=== PATIENT | female | born 1940 | race Caucasian/White ===

== ENCOUNTER 2018-03-22 13:10 | Outpatient (CLI) | payer MEDICARE | END 2018-03-22 13:11 | disposition home or self-care (01) | LOC: BICMAMMO 13:10 | PROVIDERS: ATTEND Internal Medicine | DX: Z12.31 Encounter for screening mammogram for malignant neoplasm of breast (principal); M81.0 Age-related osteoporosis without current pathological fracture; R92.1 Mammographic calcification found on diagnostic imaging of breast; Z80.3 Family history of malignant neoplasm of breast | CPT/HCPCS: 77063; 77067; 77080 ==

== ENCOUNTER 2018-07-04 08:58 | Emergency (ER) | payer MEDICARE, OTHER ==
[2018-07-04] MEDS ORDERED: Metoclopramide HCl 10 MG/2 ML VIAL ONE (10:10)
[2018-07-04] MEDS ORDERED: diphenhydrAMINE 50 MG/ML VIAL ONE (10:10)
--- NOTE | 2018-07-04 11:22 | CT ---
CT HEAD NONCONTRAST: Indication: Headache. Comparison: 06-15-17 FINDINGS: Stable area of encephalomalacia of the right parietal lobe is present. This is superimposed upon mode rate chronic microvascular ischemic disease. Ventricular system is mildly prominent, stable. No acute intracranial hemorrhage or mass effect. IMPRESSION: Focal right parietal encephalomalacia superimposed upon moderate microvascular ischemic disease. No a cute intracranial hemorrhage or mass effect. POS: [facility]
[2018-07-04] MEDS ORDERED: Ketorolac Tromethamine 30 MG/ML VIAL ONE (12:23)
== END 2018-07-04 12:32 | disposition home or self-care (01) ==
LOC: ERS 08:58
DX: R51 Headache (principal); F41.9 Anxiety disorder, unspecified; E03.9 Hypothyroidism, unspecified; M81.0 Age-related osteoporosis without current pathological fracture; Z79.899 Other long term (current) drug therapy
CPT/HCPCS: 70450; 96361; 96374; 96375; J1200; J1885; J2765

== ENCOUNTER 2018-07-19 11:51 | Inpatient (IN) | payer MEDICARE, OTHER ==
[2018-07-19] MEDS ORDERED: HYDROcodone/Acetaminophen 5/325 mg Tablet ONE (12:32)
[2018-07-19] MEDS ORDERED: Ondansetron ODT 8 MG TAB ONE (12:32)
[2018-07-19] MEDS ORDERED: Lidocaine 1% (PF) 30 ML VIAL ONE (12:38)
--- NOTE | 2018-07-19 12:47 | RAD ---
LEFT ANKLE THREE VIEWS: History: Injury to ankle. FINDINGS: No significant soft tissue swelling. No evidence of fracture. IMPRESSION: No acute osseous abnormality identified. POS: [facility]
--- NOTE | 2018-07-19 12:48 | RAD ---
RIGHT WRIST THREE VIEWS: History: Injury to wrist. FINDINGS: There is soft tissue swelling and evidence of soft tissue disruption ventrally at the wrist. There is diffuse radiopacities within the soft tissues consistent with foreign body. There are degenerative c hanges at the carpals. No acute fracture identified. IMPRESSION: Soft tissue injury with soft tissue foreign material within the soft tissues ventrally at the wrist. No acute fracture identified. POS: [facility]
[2018-07-19] MEDS ORDERED: Ondansetron PF 4 MG/2 ML Vial IV PRN (15:17)
[2018-07-19] MEDS ORDERED: Acetaminophen 325 MG TAB PO PRN (15:17)
[2018-07-19] MEDS ORDERED: Morphine 4 MG/ML VIAL SLOW IVP PRN ×2 (15:17)
[2018-07-19] MEDS ORDERED: traMADol HCl 50 MG TAB PO PRN ×2 (15:17)
[2018-07-19] MEDS ORDERED: Fentanyl 100 MCG/2 ML VIAL SLOW IVP PRN (15:17)
[2018-07-19] MEDS ORDERED: Communication Order-Pharmacy FS SCH (15:30)
[2018-07-19] MEDS ORDERED: TETANUS AND DIPHTHERIA TOX/PF 0.5 ML DISP.SYRIN IM SCH (15:30)
[2018-07-19 15:45] LABS: #Basophils 0.1 thou/uL (0.0-0.2); #Lymphocytes 1.2 thou/uL (1.20-3.40); #Monocytes 0.5 thou/uL (0.11-0.59); #Neutrophils 7.8 thou/uL (1.40-6.50); %Basophils 0.6 % (0.0-1.0); %Eosinophils 0.2 % (0.0-10.0); %Lymphocytes 12.1 % (21.0-51.0); %Neutrophils 81.9 % (42.0-75.0); Mean Corpuscular HGB CONC 33.8 g/dL (32.0-36.0); Mean Corpuscular Hemoglobin 32.8 pg (27.0-31.0); Platelet Count 236 thou/uL (130-400); RBC Distribution Width 10.9 % (11.5-14.5); Red Blood Cell (RBC) Count 3.64 mill/uL (4.20-5.40); White Blood Cell (WBC) Count 9.5 thou/uL (4.8-10.8)
[2018-07-19 16:20] LABS: ALT (SGPT) 18 U/L (8-55); AST (SGOT) 34 U/L (5-34); Albumin 3.8 g/dL (3.4-4.8); Alkaline Phosphatase 71 U/L (40-150); Anion Gap 13 mmol/L (10-20); BUN (Urea Nitrogen) 13 mg/dL (9.8-20.1); Bilirubin, Total 0.2 mg/dL (0.2-1.2); Calc. Creatinine Clearance 0 mL/min (70-130); Calcium 9.5 mg/dL (7.8-10.44); Carbon Dioxide 25 mmol/L (23-31); Chloride 106 mmol/L (98-107); Estimated GFR-MDRD 74; Globulin 2.9 g/dL (2.4-3.5); Glucose 98 mg/dL (83-110); Potassium 3.6 mmol/L (3.5-5.1); Protein, Total 6.7 g/dL (6.0-8.3); Sodium 140 mmol/L (136-145)
[2018-07-19] MEDS: Ketorolac Tromethamine 30 MG/ML VIAL IVP SCH ×2 (18:39→23:32)
[2018-07-19] MEDS: CEFAZOLIN 2 GM/50 ML BAG IVPB SCH ×2 (18:39→23:32)
[2018-07-19 19:22] VITALS: BMI 19.7
[2018-07-19] MEDS: Aspirin 81 mg Enteric Coated Tablet PO SCH (19:56)
[2018-07-19] MEDS: Sodium Chloride 0.9% 100 ML IV SCH ×3 (19:57→21:14)
--- NOTE | 2018-07-19 20:47 | CON ---
This is a consult dictated in HNP Format::: DATE OF CONSULTATION: HISTORY OF PRESENT ILLNESS: We are asked by the ER to see the patient. The patient was out on the property and has a new puppy. Unfortunately, the puppy was unleashed and jumped out of the car. Ms. Dye went with it and incurred a large jagged wrist laceration. She has good motion in her hand. No numbness or tingling. ER have scrubbed it out, has a lot of dirt and rocks, but it is quite hard to approximate the edges. I spoke with Dr. Johnson let him know the case, would like to put her in the hospital and might get her couple doses of antibiotics and clean and approximate the wound tomorrow. I have discussed this with patient, she is amenable to go forth with that. PAST MEDICAL HISTORY: Positive for Synthroid. PAST SURGICAL HISTORY: She has had a right fractured hip and has a saul in her hip. 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 No alcohol , nicotine, or illicit drug use whatsoever. FAMILY HISTORY: Has been healthy and is noncontributory. CURRENT MEDICATIONS: Synthroid. ALLERGIES: SENSITIVITY TO CODEINE. REVIEW OF SYSTEMS: Other than her thyroid, she is very healthy individual. She does take some supplemental medications and vitamins, but otherwise has no other health issues. Rest of review of systems is negative. PHYSICAL EXAMINATION: GENERAL: A well-nourished, well-developed female, resting in [facility], in no acute distress. Speech is clear. Affect pleasant. Answers questions appropriately. She is alert and oriented x3. NECK: Supple. Trachea midline. EXTREMITIES: Upper extremities; right upper extremity does show a very large, open, dirty jagged wound to the right wrist on the volar side. She is able to make a fist, has good sensation and pulses are equal in the upper extremities. Lower extremities; equal size, shape, symmetry, normal bulk and tone. RESPIRATORY: No distress. DIAGNOSTIC DATA: X-rays, no break seen after reviewing films of the wrist. Her ankle has some pain, but also shows no fracture whatsoever. ASSESSMENT: Fall with ensuing open dirty laceration to the right wrist. PLAN: We will get her tucked in to the hospital tonight. Get a few doses of antibiotics and we just put a light moist dressing on her wrist for minimal usage. She can get up move around if she is able to, but states that her ankle is quite tender. If she continues to struggle this, we may need to get a brace on it. As for her wrist, we are going to do a debridement washout, wound approximation in the morning. Procedures have been explained to the patient and the , who is at bedside and both of them are amenable to go forth with the surgery. Questions and concerns have been answered. will take off this evening to take care of things at the house and return in the morning. If further questions arise at that time, we can discuss on that. Job ID: [id number] MTDD
[2018-07-20] MEDS: Ketorolac Tromethamine 30 MG/ML VIAL IVP SCH ×4 (04:51→17:41)
[2018-07-20] MEDS: CEFAZOLIN 2 GM/50 ML BAG IVPB SCH ×2 (07:39→16:10)
--- NOTE | 2018-07-20 07:43 | RAD ---
LEFT FOOT 3 VIEWS: HISTORY: A 77-year-old female with a history of injury. COMPARISON: 07/19/2018 ankle exam. FINDINGS: Heterogeneous bone demineralization with some generalized degenerative change. Irregular essentially nondisplaced transverse fracture through the mid talus bone. IMPRESSION: Irregular vertically oriented fracture through the mid portion of the talus bone. POS: [facility]
[2018-07-20] MEDS ORDERED: Midazolam HCl 2 mg/2 ml Vial ONE (09:41)
[2018-07-20] MEDS ORDERED: Fentanyl 100 MCG/2 ML VIAL ONE ×2 (09:41→11:05)
[2018-07-20] MEDS ORDERED: Ondansetron PF 4 MG/2 ML Vial ONE ×2 (10:07→21:22)
[2018-07-20] MEDS ORDERED: Dexamethasone 4 mg/ml Vial ONE (10:07)
[2018-07-20] MEDS ORDERED: Scopolamine 1.5 mg/72 hour Patch ONE (10:08)
[2018-07-20] MEDS ORDERED: Neomycin-Polymyxin 1 ML AMP ONE (10:23)
[2018-07-20] MEDS ORDERED: Aspirin/APAP/Caffeine Tab (Excedrin Migraine) PO PRN (10:49)
[2018-07-20] MEDS ORDERED: Promethazine HCl 25 MG/ML VIAL SLOW IVP PRN (12:28)
[2018-07-20] MEDS ORDERED: Promethazine HCl 25 MG/ML VIAL IM PRN (12:28)
[2018-07-20] MEDS ORDERED: Ondansetron HCl/PF 4 MG/2 ML Vial IVP PRN (12:28)
--- NOTE | 2018-07-20 13:27 | RAD ---
LEFT ANKLE 3 VIEWS: Date: 07/20/18 HISTORY: 77-year-old female with history of talar fracture. Placement of two internal fixation screws stabilizing the slightly comminuted, vertically oriented fr acture through the mid talus bone. IMPRESSION: Placement of two internal fixation screws, stabilizing the irregularly comminuted, vertically oriente d fracture through the mid talus bone. POS: [facility]
[2018-07-20] MEDS ORDERED: CEFAZOLIN 2 GM/50 ML BAG IVPB SCH (14:00)
--- NOTE | 2018-07-20 14:18 | OP ---
DATE OF PROCEDURE: 07/20/2018 PREOPERATIVE DIAGNOSES: 1. Left talus fracture. 2. Right forearm skin tear and laceration. POSTOPERATIVE DIAGNOSES: 1. Left talus fracture. 2. Right forearm skin tear and laceration. PROCEDURES PERFORMED: 1. Open reduction and internal fixation of left talus fracture. 2. Repair of right forearm skin tear with irrigation and debridement and wound VAC placement. DISH CLOTH INSPECTOR: Nora King PA-C. ESTIMATED BLOOD LOSS: 50 mL. IMPLANTS: Two 4.0 mm cannulated screws, partially threaded. INDICATIONS: Ms. Dye is a 77-year-old female who fell. She sustained a left talus fracture as well as a right forearm skin tear. She was indicated for surgical intervention to cleanse her wound and allow closure as well as wound VAC placement in preparation for future skin grafting. She was indicated for open reduction and internal fixation of the talus fracture to stabilize the fracture and allow reduction. She is at risk for avascular necrosis and complications with her talus such as posttraumatic arthritis. DESCRIPTION OF PROCEDURE: Ms. Dye was identified in the preoperative holding area. Her correct extremity was marked. She was carried to the operating room. She was positioned supine. General anesthesia was induced. A multidisciplinary time-out was performed. The left lower extremity was prepped and draped in a sterile fashion as well as the right arm. At this point, we began the surgery with the right arm. We thoroughly irrigated it with copious lavage of the wound. We removed all foreign bodies including some small bits of gravel. We worked more deeply down to the subcutaneous tissue and tendon tissue. There were no tendons lacerated. There was a large flap of skin approximately 5 cm x 4 cm that we were able to reduce back into its position. This was sutured with a Monocryl suture. We then washed the smaller wound that was more proximal and placed a suture in this. There was a 2 cm x 3 cm area that did not have skin coverage. The Wound Care Team came in and placed a wound VAC over this wound. At this point, we moved to the talus. We made a lateral approach to the talus, dissecting down through the subcutaneous tissues to the talar bony level. We exposed the underlying fracture and removed hematoma. We debrided the bony edges. There was a high degree of comminution at the talar neck and body fracture. There were no given the degree of comminution. At this point, we used intraoperative x-ray to help reduce the fracture as well as direct visualization. We held the reduced fragments with a K-wire. We then placed two 4.0 partially-threaded Synthes screws across the fracture stabilizing the fracture. At this point, we packed bone graft into the fracture site filling in the void. We took final images. We thoroughly irrigated with copious lavage. At this point, we closed with 0 Vicryl suture, 2-0 Vicryl suture, and then finally nylon for the skin. A splint was placed. The patient was taken to the recovery room in good condition at this point without complication. Job ID: [id number]
[2018-07-20] MEDS: Sodium Chloride 0.9% 100 ML IV SCH ×6 (14:30→17:41)
[2018-07-20] MEDS: Aspirin 81 mg Enteric Coated Tablet PO SCH ×2 (14:32→20:53)
[2018-07-20] MEDS ORDERED: Dexamethasone 20 MG/5 ML VIAL ONE (21:22)
[2018-07-20] MEDS ORDERED: Succinylcholine Chloride 20 MG/ML 10 ml SYRINGE FS ONE (21:22)
[2018-07-20] MEDS ORDERED: PROPOFOL 200 MG/20 ML VIAL ONE (21:22)
[2018-07-20] MEDS ORDERED: Bupivacaine HCl 0.5%/Epinephrine 1:200,000/PF 30 ml Vial ONE (22:04)
[2018-07-21] MEDS: CEFAZOLIN 2 GM/50 ML BAG IVPB SCH ×3 (00:07→16:25)
[2018-07-21] MEDS: Levothyroxine Sodium 25 MCG TAB PO SCH (06:09)
[2018-07-21] MEDS: Sodium Chloride 0.9% 100 ML IV SCH ×4 (07:58→19:47)
[2018-07-21] MEDS: Sodium Chloride 0.9% 1,000 ML IV SCH ×2 (07:58→15:14)
[2018-07-21] MEDS: Aspirin 81 mg Enteric Coated Tablet PO SCH ×2 (08:02→20:21)
[2018-07-21] MEDS ORDERED: ASCORBIC ACID PO SCH (09:00)
[2018-07-21] MEDS ORDERED: [UNRECOGNIZED DRUG - OTHER] PO SCH (09:00)
[2018-07-21] MEDS ORDERED: ASCORBATE SODIUM PO SCH (09:00)
--- NOTE | 2018-07-21 13:43 | EKG ---
Test Reason : Blood Pressure : / mmHG Vent. Rate : 081 BPM Atrial Rate : 081 BPM P-R Int : 144 ms QRS Dur : 076 ms QT Int : 420 ms P-R-T Axes : 064 -04 036 degrees QTc Int : 487 ms Normal sinus rhythm Nonspecific ST abnormality Abnormal ECG Confirmed by COLEEN TA ([id number]), society editor WAYNE GARCIA ([id number]) on 07/21/2018 1:43:03 PM Referred By: Confirmed By:COLEEN TA
[2018-07-22] MEDS: Sodium Chloride 0.9% 1,000 ML IV SCH ×3 (01:08→20:25)
[2018-07-22] MEDS: Levothyroxine Sodium 25 MCG TAB PO SCH (05:18)
[2018-07-22] MEDS: Aspirin 81 mg Enteric Coated Tablet PO SCH ×2 (09:16→20:22)
[2018-07-23] MEDS: Levothyroxine Sodium 25 MCG TAB PO SCH (05:32)
[2018-07-23] MEDS: Sodium Chloride 0.9% 1,000 ML IV SCH ×2 (07:29→14:10)
[2018-07-23] MEDS: Aspirin 81 mg Enteric Coated Tablet PO SCH (07:29)
[2018-07-23 16:02] VITALS: BP 130/81; TEMP 98.4
--- NOTE | 2018-07-24 15:05 | DIS ---
DATE OF ADMISSION: 07/19/2018 DATE OF DISCHARGE: 07/23/2018 PREOPERATIVE DIAGNOSES: 1. Left talus fracture. 2. Right forearm skin tear and laceration. POSTOPERATIVE DIAGNOSES: 1. Left talus fracture. 2. Right forearm skin tear and laceration. PROCEDURES PERFORMED: 1. Open reduction and internal fixation of left talus fracture. 2. Repair of right forearm skin tear with irrigation, debridement, and wound VAC placement. BRIEF HOSPITAL COURSE: Ms. Dye is a 78-year-old female, status post fall. She sustained a left talus fracture as well as a right forearm skin tear. She was indicated for the above-mentioned procedure. Postoperatively, she was admitted to the surgical floor where she worked with physical therapy as well as occupational therapy. She received postoperative analgesics and antibiotics. She was discharged home to follow up in the clinic as an outpatient. DISCHARGE DISPOSITION: Home. DISCHARGE CONDITION: Stable. DISCHARGE INSTRUCTIONS: The patient will leave her wound VAC intact until she follows up in the clinic next week. She will remain nonweightbearing on the left lower extremity with a splint intact. DISCHARGE MEDICATIONS: See MAR. Job ID: [id number]
== END 2018-07-23 16:30 | disposition home or self-care (01) | DRG 502 ==
LOC: ERS 11:51 → SJJU 15:15
PROVIDERS: ADMIT Orthopaedic Surgery; ATTEND Orthopaedic Surgery
PROC: 3E10X8Z Irrigation of Skin and Mucous Membranes using Irrigating Substance (ICD-10-PCS; 2018-07-19)
PROC: 0QSM04Z Reposition Left Tarsal with Internal Fixation Device, Open Approach (ICD-10-PCS; principal; 2018-07-20)
PROC: 0HQDXZZ Repair Right Lower Arm Skin, External Approach (ICD-10-PCS; 2018-07-20)
PROC: 0JDG0ZZ Extraction of Right Lower Arm Subcutaneous Tissue and Fascia, Open Approach (ICD-10-PCS; 2018-07-20)
DX: S92.112A Displaced fracture of neck of left talus, initial encounter for closed fracture (principal); S51.821A Laceration with foreign body of right forearm, initial encounter; S92.122A Displaced fracture of body of left talus, initial encounter for closed fracture; E03.9 Hypothyroidism, unspecified; F41.9 Anxiety disorder, unspecified; Z88.5 Allergy status to narcotic agent; Z79.899 Other long term (current) drug therapy; W17.89XA Other fall from one level to another, initial encounter
CPT/HCPCS: 76001; 80053; 85025; 93005; C1713; C1769; G8981-GP-CJ; G8982-GP-CI; G8987-GO-CK; G8988-GO-CI; J0670; J1100; J1885; J2001; J2250; J2270; J2405; J2704; J3010

== ENCOUNTER 2018-11-26 07:09 | Observation (INO) | payer MEDICARE, OTHER ==
[2018-11-26] MEDS ORDERED: Ondansetron PF 4 MG/2 ML Vial ONE (07:52)
[2018-11-26] MEDS ORDERED: Lorazepam 2 MG/ML VIAL ONE (07:52)
[2018-11-26 08:04] LABS: #Basophils 0.1 thou/uL (0.0-0.2); #Eosinphils 0.1 thou/uL (0.0-0.7); #Lymphocytes 1.6 thou/uL (1.20-3.40); #Monocytes 0.3 thou/uL (0.11-0.59); #Neutrophils 2.9 thou/uL (1.40-6.50); %Basophils 1.1 % (0.0-1.0); %Eosinophils 2.4 % (0.0-10.0); %Monocytes 6.5 % (0.0-10.0); %Neutrophils 57.9 % (42.0-75.0); Hemoglobin 12.8 g/dL (12.0-16.0); Mean Corpuscular HGB CONC 33.3 g/dL (32.0-36.0); Mean Platelet Volume 7.2 fL (7.4-10.4); Platelet Count 207 thou/uL (130-400); RBC Distribution Width 10.9 % (11.5-14.5); Red Blood Cell (RBC) Count 3.99 mill/uL (4.20-5.40)
--- NOTE | 2018-11-26 08:15 | CT ---
CT head noncontrast HISTORY: Altered mental status. Nausea and vomiting. COMPARISON: 07/04/2018. FINDINGS: There is no evidence of acute intracranial hemorrhage or infarct. Encephalomalacia at the r ight parietal lobe is stable. Chronic ischemic small vessel disease with periventricular white matter is also similar in appearance to the prior exam. There is no mass effect or shift of midline s tructures. Visualized paranasal sinuses remain well-aerated. IMPRESSION: Chronic-type findings are stable. No acute intracranial abnormalities are demonstrated.
[2018-11-26 08:22] LABS: ALT (SGPT) 16 U/L (8-55); AST (SGOT) 26 U/L (5-34); Albumin 3.9 g/dL (3.4-4.8); Alkaline Phosphatase 101 U/L (40-150); Anion Gap 10 mmol/L (10-20); BUN (Urea Nitrogen) 16 mg/dL (9.8-20.1); Bilirubin, Total 0.4 mg/dL (0.2-1.2); Calc. Creatinine Clearance 0 mL/min (70-130); Calcium 9.5 mg/dL (7.8-10.44); Carbon Dioxide 27 mmol/L (23-31); Chloride 106 mmol/L (98-107); Estimated GFR-MDRD 71; Globulin 2.9 g/dL (2.4-3.5); Glucose 187 mg/dL (83-110); Potassium 3.1 mmol/L (3.5-5.1); Protein, Total 6.8 g/dL (6.0-8.3); Sodium 140 mmol/L (136-145)
[2018-11-26] MEDS ORDERED: Meclizine HCl 25 MG TAB ONE (09:28)
[2018-11-26 09:57] LABS: Bilirubin Negative (Negative); Blood, Urine Negative (Negative); Clarity CLEAR (Clear); Glucose, Urine (Dipstick) Negative (Negative); Leukocyte Negative (Negative); Nitrite Negative (Negative); Protein, Urine (Dipstick) Negative (Neg-Trace); Specific Gravity, Urine 1.008 (1.002-1.036); Urobilinogen 0.2 mg/dL (0.2-1.0); pH, Urine 7.5 (5.0-9.0)
[2018-11-26] MEDS ORDERED: hydrALAZINE 20 MG/ML VIAL SLOW IVP PRN (12:33)
[2018-11-26] MEDS ORDERED: Bisacodyl 5 MG TAB PO PRN (12:33)
[2018-11-26] MEDS ORDERED: Acetaminophen 325 MG TAB PO PRN (12:33)
--- NOTE | 2018-11-26 16:30 | MRI ---
MRI Brain WO Con: 11/26/2018 12:34 PM CLINICAL HISTORY: Stroke, dizziness. COMPARISON: None. FINDINGS: Extra axial spaces: Prominent, related to parenchymal atrophy. Acute infarction: None. Ventricular system: Enlarged related to compensatory dilatation. Basal cisterns: Normal. Cerebral parenchyma: Microvascular ischemic changes. Multifocal susceptibility is present involving t he bilateral cerebral hemispheres more pronounced on the right. There is right temporoparietal encephalomalacia. Midline shift: None. Cerebellum: Normal. Brainstem: Normal. Paranasal sinuses:Clear IMPRESSION:No acute territorial infarction. Multifocal susceptibility, some of which indicates hemosiderin from remote ischemic insult. In additi on, given multifocality, and rounded punctate morphology, this can be seen in the setting of amyloid angiopathy. Correlate clinically. Moderate chronic ischemic disease of cerebral white matter.
--- NOTE | 2018-11-26 16:51 | ULT ---
BILATERAL CAROTID DUPLEX ULTRASOUND: HISTORY: Stroke TECHNIQUE: Grayscale, color-flow and spectral Doppler ultrasound imaging of the extracranial carotid artery syst ems was performed bilaterally. FINDINGS: Mild plaque formation. The peak systolic velocity in the right ICA measures 69 cm/s. The peak systolic velocity in the left ICA measures 76 cm/s. Vertebral flow: antegrade, bilaterally. . IMPRESSION: No hemodynamically significant stenosis of Both ICAs.
[2018-11-26] MEDS: Meclizine HCl 25 MG TAB PO SCH ×2 (16:56→21:32)
[2018-11-26 17:00] VITALS: BMI 18.9
[2018-11-26] MEDS ORDERED: Potassium Chloride 20 MEQ TAB PO SCH (17:00)
--- NOTE | 2018-11-26 17:04 | HP ---
PRIMARY CARE PROVIDER: Dr. Yanely Andrade. CHIEF COMPLAINT: Nausea and vomiting. HISTORY OF PRESENT ILLNESS: Ms. Dye is a pleasant 78-year-old lady, who was seen at [facility] on November 26, 2018. She got up to go to the bathroom this morning and feel dizzy. She reports nausea and vomiting. She denies any chest pain or shortness of breath. She denies any vision changes. She denies any hearing problems. She denies any tinnitus. She came to the emergency room because of above symptoms. REVIEW OF SYSTEMS: All other systems reviewed and found to be negative. PAST MEDICAL HISTORY: Hypothyroidism, osteoporosis. PAST SURGICAL HISTORY: Right hip surgery, hysterectomy, and tonsillectomy. PSYCHIATRIC HISTORY: Anxiety. SOCIAL HISTORY: The patient denies tobacco use, alcohol use, or recreational drug use. CODE STATUS: I discussed her code status. She is full code. FAMILY HISTORY: No family history of cerebrovascular accident. ALLERGIES: CODEINE. CURRENT MEDICATIONS: 1. Levothyroxine 25 mcg daily. 2. Zoloft 25 mg daily. 3. Lorazepam 0.5 mg p.r.n. PHYSICAL EXAMINATION: GENERAL: On examination, Ms. Dye is awake and alert, not in acute distress. VITAL SIGNS: Blood pressure is 135/77, pulse 81, respiratory rate 14, and oxygen saturation 96% on room air. She is afebrile. EYES: No scleral icterus, no conjunctival pallor. ENT: Moist mucosal membranes. No oropharyngeal erythema or exudates. NECK: Supple, nontender, trachea is midline. RESPIRATORY: Accessory muscles of breathing are not active. Chest wall movements are symmetric bilaterally. LUNGS: Clear to auscultation without wheeze, rhonchi, or crepitations. CARDIOVASCULAR: S1 and S2 are heard, regular. Peripheral pulses palpable. No carotid bruit. No pericardial rub. ABDOMEN: Soft, nontender, bowel sounds heard, no hepatomegaly, no splenomegaly. NEUROLOGIC: She has left lateral nystagmus. Otherwise, cranial nerves 2 through 12 are intact. No focal motor or sensory deficits. Power is 5/5 in all 4 extremities. Plantar reflexes are downgoing, deep tendon reflexes are 2+. MUSCULOSKELETAL: Power is 5/5 in all 4 extremities. SKIN: No rashes or subcutaneous nodules. LYMPHATIC: No cervical lymphadenopathy. PSYCHIATRIC: Normal mood, normal affect, the patient is oriented to person, place, and time. LABORATORY DATA: Ms. Dye's labs and investigations were reviewed. I reviewed her electrocardiogram, which shows normal sinus rhythm, no ST changes to suggest an acute coronary syndrome. I reviewed a noncontrast CT scan of the brain, which did not show any acute stroke or bleed. She has normal white count, normal hemoglobin, normal platelet count, normal sodium, decreased potassium of 3.1, normal LFTs, and normal TSH. Urinalysis is positive for trace ketones. ASSESSMENT AND PLAN: Ms. Dye is a pleasant 78-year-old lady, who was seen at [facility] on November 26, 2018. Her problem list includes: 1. Vertigo: Ms. Dye is presenting with vertigo, most likely peripheral, although, I cannot rule out central etiology at this time. She will be admitted to the hospital for further management including MRI of the brain and carotid Dopplers and 2D echocardiogram. We will also consult Neurology Service. We will trial meclizine empirically for benign paroxysmal positional vertigo. 2. Hypokalemia: Replace potassium and recheck. 3. Hypothyroidism: TSH is normal, continue Synthroid. 4. Osteoporosis: Stable. Many thanks for allowing me to participate in your patient's care. Please feel free to contact me with any questions or concerns. Level of risk: High. Level of complexity: High. Job ID: [id number]
[2018-11-26] MEDS ORDERED: Aspirin/APAP/Caffeine Tab (Excedrin Migraine) PO PRN (18:05)
[2018-11-26] MEDS ORDERED: Amitriptyline HCl 10 MG TAB PO SCH (21:00)
[2018-11-26] MEDS: Aspirin 81 mg Enteric Coated Tablet PO SCH (21:32)
[2018-11-27] MEDS: Meclizine HCl 25 MG TAB PO SCH ×2 (05:22→15:18)
[2018-11-27 05:45] LABS: #Basophils 0.1 thou/uL (0.0-0.2); #Lymphocytes 2.5 thou/uL (1.20-3.40); #Monocytes 0.7 thou/uL (0.11-0.59); #Neutrophils 5.3 thou/uL (1.40-6.50); %Basophils 0.6 % (0.0-1.0); %Eosinophils 0.6 % (0.0-10.0); %Lymphocytes 29.5 % (21.0-51.0); %Monocytes 7.8 % (0.0-10.0); %Neutrophils 61.5 % (42.0-75.0); Hemoglobin 12.3 g/dL (12.0-16.0); Mean Corpuscular HGB CONC 33.8 g/dL (32.0-36.0); Mean Corpuscular Volume 97.5 fL (78.0-98.0); Mean Platelet Volume 7.4 fL (7.4-10.4); Platelet Count 185 thou/uL (130-400); Red Blood Cell (RBC) Count 3.74 mill/uL (4.20-5.40); White Blood Cell (WBC) Count 8.6 thou/uL (4.8-10.8)
[2018-11-27 05:57] LABS: Anion Gap 11 mmol/L (10-20); BUN (Urea Nitrogen) 12 mg/dL (9.8-20.1); Calc. Creatinine Clearance 46 mL/min (70-130); Calcium 9.6 mg/dL (7.8-10.44); Carbon Dioxide 25 mmol/L (23-31); Cardiac Risk 3.3 (Less than 4.5); Chloride 106 mmol/L (98-107); Cholesterol 185 mg/dl (< 200 Desired); Estimated GFR-MDRD 74; Glucose 87 mg/dL (83-110); HDL Cholesterol 56 mg/dL (>60 Neg Risk); LDL Cholesterol, Calculated 112 mg/dL; Potassium 4.3 mmol/L (3.5-5.1); Sodium 138 mmol/L (136-145); Triglycerides 87 mg/dL (Less than 150)
[2018-11-27] MEDS ORDERED: Levothyroxine Sodium 25 MCG TAB PO SCH (06:00)
[2018-11-27] MEDS: Aspirin 81 mg Enteric Coated Tablet PO SCH (08:42)
[2018-11-27] MEDS ORDERED: Ascorbic Acid 500 mg Chewable Tablet PO SCH (09:00)
[2018-11-27] MEDS ORDERED: Enoxaparin Sodium 40 MG/0.4 ML SYRINGE SC SCH (09:00)
[2018-11-27] MEDS ORDERED: Aspirin 325 mg Enteric Coated Tablet PO SCH (09:00)
[2018-11-27 12:02] VITALS: TEMP 97.9
[2018-11-27 14:28] VITALS: BP 148/95
--- NOTE | 2018-11-28 05:22 | DIS ---
DATE OF ADMISSION: 11/26/2018 DATE OF DISCHARGE: 11/27/2018 DISCHARGE DIAGNOSES: 1. Benign positional vertigo, improved. 2. Nausea and vomiting secondary to benign positional vertigo, resolved. 3. Hypokalemia, resolved. 4. Hypothyroidism. 5. Elevated blood pressure. CONSULTATIONS: None. PERTINENT LAB AND X-RAY FINDINGS: Potassium ranged between 3.1 to 4.3. Total cholesterol 185, triglycerides 87, HDL 56, LDL 112, TSH 3.21. CBC within normal limits. CT of the brain without contrast dated 11/26/2018 showed chronic ischemic changes without acute process. MRI of the brain dated 11/26/2018 showed no acute infarct. Chronic ischemic white matter changes noted. Carotid Doppler study dated 11/26/2018 showed no hemodynamically significant stenosis. 2D transthoracic echocardiogram dated 11/27/2018 showed ejection fraction of 55% to 60%. Mild tricuspid regurgitation noted. HOSPITAL COURSE: The patient was initially observed on the stroke unit after presenting with acute onset of vertigo with associated nausea and vomiting. The patient underwent extensive evaluation including multiple neuroimaging studies, all without evidence for acute process. Screening metabolic survey was essentially unremarkable except for mild hypokalemia, resolving with potassium supplementation. Telemetry monitoring showed a sinus mechanism without evidence of acute arrhythmia or dysrhythmia and 2D transthoracic echocardiogram performed showed a preserved ejection fraction of 55% to 60%. The patient was noted with some mild elevated blood pressure readings with recommendations for outpatient monitoring and surveillance. The patient did receive meclizine 25 mg t.i.d. with improvement in overall vertiginous symptoms. The patient was able to tolerate regular oral intake, voiding appropriately, and ambulate in the halls. I have examined the patient at the time of discharge and discussed followup instructions. The patient verbalized understanding and in agreement and ready for discharge on 11/27/2018. DISCHARGE MEDICATIONS: 1. Meclizine 25 mg p.o. t.i.d. p.r.n. 2. Zofran 4 mg p.o. q.6 hours p.r.n. nausea and vomiting. 3. Enteric-coated aspirin 81 mg p.o. b.i.d. 4. Sertraline 50 mg p.o. at bedtime. 5. Levothyroxine 25 mcg p.o. daily. 6. Excedrin migraine 1-2 tabs p.o. daily p.r.n. 7. Vitamin C 500 mg p.o. daily. 8. Amitriptyline 10 mg p.o. at bedtime. FOLLOWUP: The patient will follow up with her primary care provider, Dr. Yanely Andrade within 7 days of discharge. CONDITION ON DISCHARGE: Stable. ACTIVITY: Ad-konstantin. DIET: Heart healthy. CODE STATUS: Full. DISPOSITION: To home on 11/27/2018. Job ID: [id number]
== END 2018-11-27 15:57 | disposition home or self-care (01) ==
LOC: ERS 07:09 → 2SE 11:45
PROVIDERS: ADMIT Internal Medicine; ATTEND Internal Medicine
DX: H81.10 Benign paroxysmal vertigo, unspecified ear (principal); E03.9 Hypothyroidism, unspecified; E87.6 Hypokalemia; R03.0 Elevated blood-pressure reading, without diagnosis of hypertension; M81.0 Age-related osteoporosis without current pathological fracture; F41.9 Anxiety disorder, unspecified; Z86.73 Personal history of transient ischemic attack (TIA), and cerebral infarction without residual deficits; Z79.82 Long term (current) use of aspirin; Z79.899 Other long term (current) drug therapy; Z88.5 Allergy status to narcotic agent
CPT/HCPCS: 51701; 70450; 70551; 80048; 80061; 81003; 82962; 85025; 93005; 93306; 93880; 96372; 96374; 96375; 97116; 97139 ×4; 99285; G0378 ×2; 36415; 36416; 80053; 84443; 96361; A4353; J1650; J2060; J2405; J8499

== ENCOUNTER 2019-04-09 15:02 | Outpatient (CLI) | payer MEDICARE ==
--- NOTE | 2019-04-10 08:41 | MMO ---
Bilateral MAMMO Bilat Screen [facility]. CLINICAL HISTORY: Patient is 78 years old and is seen for screening. The patient has the following family history of breast cancer: mother. The patient has no personal history of cancer. VIEWS: The views performed were: bilateral craniocaudal with tomosynthesis and bilateral mediolateral oblique with tomosynthesis. FILMS COMPARED: The present examination has been compared to prior imaging studies performed at [facility] on 06/13/2012, 09/13/2013, 01/19/2016 and 03/22/2018. MAMMOGRAM FINDINGS: There are scattered fibroglandular densities. There are stable benign appearing calcifications seen in both breasts. There are no suspicious masses, suspicious calcifications, or new areas of architectural distortion. IMPRESSION: THERE IS NO MAMMOGRAPHIC EVIDENCE OF MALIGNANCY. A ROUTINE FOLLOW-UP MAMMOGRAM IN 1 YEAR IS RECOMMENDED. THE RESULTS OF THIS EXAM WERE SENT TO THE PATIENT. ACR BI-RADS Category 2 - Benign finding MAMMOGRAPHY NOTE: 1. A negative mammogram report should not delay a biopsy if a dominant of clinically suspicious mass is present. 2. Approximately 10% to 15% of breast cancers are not detected by mammography. 3. Adenosis and dense breasts may obscure an underlying neoplasm. Reported by: ANSLEY ZALDIVAR MD Electonically Signed: [id number]
== END 2019-04-09 15:03 | disposition home or self-care (01) ==
LOC: BICMAMMO 15:02
PROVIDERS: ATTEND Internal Medicine
DX: Z12.31 Encounter for screening mammogram for malignant neoplasm of breast (principal); Z80.3 Family history of malignant neoplasm of breast
CPT/HCPCS: 77063; 77067

== ENCOUNTER 2020-08-20 10:03 | Outpatient (CLI) | payer MEDICARE, OTHER ==
--- NOTE | 2020-08-20 11:28 | BD ---
EXAM: Bone densitometry using DEXA HISTORY: 80 yo female. Screening for postmenopausal osteoporosis. Age related osteoporosis FINDINGS: L1--bone mineral density 0.588 g/sq cm; T score -3.7 ; Z score -1.3 L2--bone mineral density 0.622 g/sq cm; T score -2.7 ; Z score -1.1 L3--bone mineral density 0.678 g/sq cm; T score -3.7 ; Z score -1.0 L4--bone mineral density 0.688 g/sq cm; T score -3.4 ; Z score -0.6 Total L1-L4--bone mineral density 0.644 g/sq cm; T score -2.7 ; Z score -1.0 Left femoral neck--bone mineral density0.373; T score -4.3 ; Z score -2.0 Total proximal left femur--bone mineral density 0.533; T score -3.4 ; Z score -1.3 IMPRESSION: Osteoporosis
--- NOTE | 2020-08-20 12:46 | MMO ---
Bilateral MAMMO Bilat Screen [facility]. CLINICAL HISTORY: Patient is 80 years old and is seen for screening. The patient has the following family history of breast cancer: mother. The patient has no personal history of cancer. VIEWS: The views performed were: bilateral craniocaudal with tomosynthesis and bilateral mediolateral oblique with tomosynthesis. FILMS COMPARED: The present examination has been compared to prior imaging studies performed at [facility] on 09/13/2013, 01/19/2016, 03/22/2018 and 04/09/2019. This study has been interpreted with the assistance of computer-aided detection. MAMMOGRAM FINDINGS: There are scattered fibroglandular densities. There are no suspicious masses, suspicious calcifications, or new areas of architectural distortion. IMPRESSION: THERE IS NO MAMMOGRAPHIC EVIDENCE OF MALIGNANCY. A ROUTINE FOLLOW-UP MAMMOGRAM IN 1 YEAR IS RECOMMENDED. THE RESULTS OF THIS EXAM WERE SENT TO THE PATIENT. ACR BI-RADS Category 1 - Negative MAMMOGRAPHY NOTE: 1. A negative mammogram report should not delay a biopsy if a dominant of clinically suspicious mass is present. 2. Approximately 10% to 15% of breast cancers are not detected by mammography. 3. Adenosis and dense breasts may obscure an underlying neoplasm. Reported by: VALENTIN MIXON MD Electonically Signed: [id number]
== END 2020-08-20 10:04 | disposition home or self-care (01) ==
LOC: BICMAMMO 10:03
PROVIDERS: ATTEND Internal Medicine
DX: Z12.31 Encounter for screening mammogram for malignant neoplasm of breast (principal); M81.0 Age-related osteoporosis without current pathological fracture; Z80.3 Family history of malignant neoplasm of breast
CPT/HCPCS: 77063; 77067; 77080

== ENCOUNTER 2021-03-19 16:52 | Observation (INO) | payer MEDICARE, OTHER ==
[2021-03-19] MEDS ORDERED: hydrALAZINE 20 MG/ML VIAL SLOW IVP PRN (20:31)
[2021-03-19] MEDS ORDERED: Famotidine 20 MG TAB PO SCH (21:00)
[2021-03-19] MEDS ORDERED: Acetaminophen 325 MG TAB PO SCH (21:00)
== END 2021-03-20 02:09 | disposition home or self-care (01) ==
LOC: ERS 16:52 → ERHOLD 19:42
PROVIDERS: ADMIT Specialist; ATTEND Specialist
DX: S06.6X0A Traumatic subarachnoid hemorrhage without loss of consciousness, initial encounter (principal); E03.9 Hypothyroidism, unspecified; M81.0 Age-related osteoporosis without current pathological fracture; Z88.5 Allergy status to narcotic agent; Z79.899 Other long term (current) drug therapy; W18.30XA Fall on same level, unspecified, initial encounter; Y92.89 Other specified places as the place of occurrence of the external cause
CPT/HCPCS: 70450

== ENCOUNTER 2021-04-27 14:28 | Outpatient (CLI) | payer MEDICARE | END 2021-04-27 14:29 | disposition home or self-care (01) | LOC: BICCT 14:28 | PROVIDERS: ATTEND Surgery | DX: S06.6X0D Traumatic subarachnoid hemorrhage without loss of consciousness, subsequent encounter (principal) | CPT/HCPCS: 70450 ==

== ENCOUNTER 2021-08-25 13:35 | Emergency (ER) | payer OTHER, MEDICARE | END 2021-08-25 16:20 | disposition home or self-care (01) | LOC: ERS 13:35 | DX: M25.552 Pain in left hip (principal); W01.0XXA Fall on same level from slipping, tripping and stumbling without subsequent striking against object, initial encounter; E03.9 Hypothyroidism, unspecified ==